=== PATIENT | female | born 1995 | race Caucasian/White ===

== ENCOUNTER 2019-11-24 09:48 | Emergency (ER) | payer SELFPAY ==
[2019-11-24 09:55] VITALS: BP 123/47
--- NOTE | 2019-11-24 10:13 | ER Document Report ---
ED Medical Screen (RME) - General Chief Complaint: Medical Clearance Stated Complaint: DETOX Time Seen by Provider: 11/24/19 10:09 Mode of Arrival: Ambulatory Information source: Patient Notes: 24-year-old female patient with history of IV drug use presents the emergency department initially requesting detox. Patient reports she has not used in a couple of weeks. She does currently use marijuana. Patient is not sure if she wants to get help but states she wants to get "checked out medically". Patient denies any acute medical concerns at this time. She denies any medical history. She she denies any current suicidal or homicidal ideations. Patient is calm, cooperative and in no acute distress. I have greeted and performed a rapid initial assessment of this patient. A comprehensive ED assessment and evaluation of the patient, analysis of test results and completion of the medical decision making process will be conducted by additional ED providers. I have specifically instructed the patient or family members with the patient to immediately return to any nursing staff should anything change in the patient's condition or with their chief complaint. - Related Data Allergies/Adverse Reactions: No Known Allergies Allergy (Unverified 11/24/19 10:09) Physical Exam - Vital signs Vitals: Temp Pulse Resp BP Pulse Ox 97.6 F 64 18 123/47 L 99 11/24/19 09:53 11/24/19 09:53 11/24/19 09:53 11/24/19 09:53 11/24/19 09:53 Course - Vital Signs Vital signs: Temp Pulse Resp BP Pulse Ox 97.6 F 64 18 123/47 L 99 11/24/19 09:53 11/24/19 09:53 11/24/19 09:53 11/24/19 09:53 11/24/19 09:53
[2019-11-24 10:56] LABS: ABSOLUTE BASOPHILS # (AUTO) 0.1 10^3/uL (0.0-0.2); ABSOLUTE EOSINOPHILS # (AUTO) 0.2 10^3/uL (0.0-0.6); ABSOLUTE LYMPHOCYTES (AUTO) 2.3 10^3/uL (0.5-4.7); ABSOLUTE MONOCYTES (AUTO) 0.5 10^3/uL (0.1-1.4); ABSOLUTE NEUT (AUTO) 5.7 10^3/uL (1.7-8.2); BASOPHILS % (AUTO) 0.9 % (0-2); EOSINOPHILS % (AUTO) 2.5 % (0-6); HEMATOCRIT 38.7 % (36.0-47.0); HEMOGLOBIN 13.2 g/dL (12.0-15.5); MEAN CORPUSCULAR HEMOGLOBIN 29.6 pg (27.0-33.4); MEAN CORPUSCULAR VOLUME 87 fl (80-97); MONOCYTES % (AUTO) 5.8 % (3-13); PLATELET COUNT 329 10^3/uL (150-450); RED BLOOD COUNT 4.44 10^6/uL (3.72-5.28); RED CELL DISTRIBUTION WIDTH 14.5 % (11.5-14.0); SEGMENTED NEUTROPHILS % (AUTO) 64.8 % (42-78); TOTAL CELLS COUNTED % (AUTO) 100 %; WHITE BLOOD COUNT 8.9 10^3/uL (4.0-10.5)
--- NOTE | 2019-11-24 11:13 | ER Document Report ---
ED General - General Chief Complaint: Medical Clearance Stated Complaint: DETOX Time Seen by Provider: 11/24/19 10:09 Primary Care Provider: [facility] [Outside] - Follow up as needed Mode of Arrival: Ambulatory Notes: 24-year-old female with ongoing marijuana and apparently injection drug use although she denies presents with "I want to get checked out" and she tells me she is not willing to be here and is not sure why her friend brought her in. She denies SI and HI the note from provider triage does not mention either of these as well. She also wants to know she is . She has no symptoms denies hallucinations. - Related Data Allergies/Adverse Reactions: No Known Allergies Allergy (Unverified 11/24/19 10:09) Past Medical History - General Information source: Patient - Social History Smoking Status: Current Every Day Smoker Frequency of alcohol use: None Drug Abuse: Marijuana, Methamphetamine Family History: None Patient has homicidal ideation: No Review of Systems - Review of Systems Notes: REVIEW OF SYSTEMS GEN: Denies fever, chills, weight loss ENT: Denies sore throat, nasal discharge, ear pain EYES: Denies blurry vision, eye pain, discharge CV: Denies chest pain, palpitations, edema RESP: Denies cough, shortness of breath, wheezing GI: Denies abdominal pain, nausea, vomiting, diarrhea MSK: Denies joint pain/swelling, edema, SKIN: Denies rash, skin lesions LYMPH: Denies swollen glands/lymph nodes NEURO: Denies headache, focal weakness or numbness, dizziness PSYCH: Denies depression, suicidal or homicidal ideation PHYSICAL EXAMINATION General: No acute distress, well-nourished Head: Atraumatic, normocephalic ENT: Mouth normal, oropharynx moist, no exudates or tonsillar enlargement Eyes: Conjunctiva normal, pupils equal, lids normal Neck: No JVD, supple, no guarding CVS: Normal rate, regular rhythm, no murmurs Resp: No resp distress, equal and normal breath sounds bilaterally GI: Nondistended, soft, no tenderness to palpation, no rebound or guarding Ext: No deformities, no edema, normal range of motion in upper and lower ext Back: No CVA or midline TTP Skin: No rash, warm Lymphatic: No lymphadeopathy noted Neuro: Awake, alert. Face symmetric. GCS 15. Physical Exam - Vital signs Vitals: Temp Pulse Resp BP Pulse Ox 97.6 F 64 18 123/47 L 99 11/24/19 09:53 11/24/19 09:53 11/24/19 09:53 11/24/19 09:53 11/24/19 09:53 Course - Re-evaluation Re-evalutation: 11/24/19 11:45 Patient presents with no complaints. She has a slightly odd affect which may be a result of drug use or chronic schizophrenia schizotypal but there is certainly no psychiatric emergency and she does not want to be here. Will check test and discharged with outpatient resources for both mental health and substance use. I have discussed with the patient there likely diagnosis, aftercare plan, follow-up plans and my usual and customary return precautions. They verbalized understanding of this. - Vital Signs Vital signs: Temp Pulse Resp BP Pulse Ox 97.6 F 64 18 123/47 L 99 11/24/19 10:09 11/24/19 09:53 11/24/19 09:53 11/24/19 09:53 11/24/19 09:53 - Laboratory Result Diagrams: 11/24/19 10:43 11/24/19 10:43 Laboratory results interpreted by me: 11/24/19 11/24/19 10:43 10:43 RDW 14.5 H Glucose 56 L AST 155 H ALT 270 H Salicylates < 1.0 L Acetaminophen < 10 L Discharge - Discharge Clinical Impression: Drug abuse, marijuana Condition: Good Disposition: HOME, SELF-CARE Instructions: Instructions for Home Care Following a Drug Overdose ([facility]) Referrals: [facility] [Outside] - Follow up as needed
[2019-11-24 11:17] LABS: ALBUMIN 4.1 g/dL (3.5-5.0); ALKALINE PHOSPHATASE 65 U/L (38-126); ANION GAP 6 (5-19); ASPARTATE AMINO TRANSFERASE 155 U/L (14-36); BILIRUBIN,TOTAL 0.3 mg/dL (0.2-1.3); BLOOD UREA NITROGEN 14 mg/dL (7-20); CALCIUM 9.5 mg/dL (8.4-10.2); CARBON DIOXIDE 30 mmol/L (22-30); CHLORIDE 103 mmol/L (98-107); POTASSIUM 4.1 mmol/L (3.6-5.0); TOTAL PROTEIN 7.3 g/dL (6.3-8.2)
[2019-11-24 11:22] LABS: ACETAMINOPHEN < 10 ug/mL (10-30); ALCOHOL < 10 mg/dL (NONE DETECTED); SALICYLATE < 1.0 mg/dL (2.0-20.0)
[2019-11-24 11:23] LABS: GLUCOSE 56 mg/dL (75-110)
[2019-11-24 11:32] LABS: AMORPHOUS SEDIMENT,URINE TRACE /HPF; APPEARANCE,URINE CLOUDY; BILIRUBIN,URINE NEGATIVE (NEGATIVE); COLOR,URINE YELLOW; GLUCOSE, URINE NEGATIVE (NEGATIVE); KETONES,URINE NEGATIVE (NEGATIVE); LEUKOCYTE ESTERASE,URINE NEGATIVE (NEGATIVE); NITRITE,URINE NEGATIVE (NEGATIVE); PROTEIN,URINE NEGATIVE (NEGATIVE); URINE SPECIFIC GRAVITY 1.015; UROBILINOGEN,URINE NEGATIVE mg/dL (<2.0)
[2019-11-24 11:45] LABS: URINE AMPHETAMINES SCREEN NEGATIVE; URINE BARBITURATES SCREEN NEGATIVE; URINE BENZODIAZEPINES SCREEN NEGATIVE; URINE COCAINE SCREEN NEGATIVE; URINE MARIJUANA (THC) SCREEN UNCONFIRMED POSITIVE; URINE METHADONE SCREEN NEGATIVE; URINE PHENCYCLIDINE SCREEN NEGATIVE
--- NOTE | 2019-11-24 22:34 | EKG REPORT ---
SEVERITY:- NORMAL ECG - SINUS RHYTHM : Confirmed by: Pat Valera 24-Nov-2019 22:33:30
== END 2019-11-24 11:41 | disposition home or self-care (01) ==
LOC: ER 09:48
DX: F12.10 Cannabis abuse, uncomplicated (principal); F19.10 Other psychoactive substance abuse, uncomplicated; F17.200 Nicotine dependence, unspecified, uncomplicated
CPT/HCPCS: 36415; 80053; 80307; 81001; 81025; 85025; 93005; 93010; 99283